=== PATIENT | female | born 1990 | race Caucasian/White ===

== ENCOUNTER 2017-04-07 15:57 | Inpatient (IN) | payer OTHER ==
[~2017-04-07] VITALS: Ht 156 cm; Wt 67.0 kg
[2017-04-07] MEDS ORDERED: RINGERS SOLUTION,LACTATED 1,000 ML IV PRN (16:40)
[2017-04-07] MEDS ORDERED: OXYTOCIN 30 UNITS/LACT RINGERS 500 ML IV ONE (16:40)
[2017-04-07] MEDS ORDERED: CITRIC ACID/SODIUM CITRATE 30 ML SOLUTION UDCUP PO PRN (16:45)
[2017-04-07] MEDS ORDERED: METOCLOPRAMIDE HCL 5 MG/ML 2 ML VIAL IVP PRN (16:45)
[2017-04-07] MEDS ORDERED: PRENATAL VIT PO (16:49)
[2017-04-07] MEDS ORDERED: [UNRECOGNIZED DRUG - OTHER] PO (16:49)
[2017-04-07] MEDS ORDERED: IRON PO (16:49)
[2017-04-07 17:14] LABS: BASOPHILS % (AUTO) 0.3 % (0.0-2.0); EOSINOPHILS % (AUTO) 0.1 % (1.0-6.0); HEMATOCRIT 36.6 % (36-46); HEMOGLOBIN 12.5 g/dL (12.0-16.0); LYMPHOCYTES # (AUTO) 1.6 K/uL (1.0-4.8); MEAN CORPUSCULAR HEMOGLOBIN 30.3 pg (26.0-34.0); MEAN CORPUSCULAR HGB CONC 34.2 G/dL (31.0-37.0); MEAN CORPUSCULAR VOLUME 89 fL (80-100); MONOCYTES # (AUTO) 0.8 K/uL (0.1-1.0); MONOCYTES % (AUTO) 5.7 % (2.0-9.0); NEUTROPHILS # (AUTO) 11.7 K/uL (1.8-7.7); NEUTROPHILS % (AUTO) 82.9 % (40.0-70.0); RED BLOOD CELL COUNT(AUTO) 4.14 MIL/uL (4.00-5.20); RED CELL DISTRIBUTION WIDTH 13.8 % (11.5-14.5); WHITE BLOOD COUNT (AUTO) 14.2 K/uL (4.5-11.0)
[2017-04-07] MEDS: RINGERS SOLUTION,LACTATED 1,000 ML IV SCH ×2 (17:27→21:04)
[2017-04-07] MEDS ORDERED: AMPICILLIN SODIUM 2 GM/NS 100 ML IV ONE (17:45)
[2017-04-07 18:06] VITALS: BP 127/83
[2017-04-07] MEDS ORDERED: MISOPROSTOL 25 MCG TABLET VG ONE ×2 (18:30→22:00)
[2017-04-07] MEDS ORDERED: OXYGEN THERAPY IH SCH (20:00)
[2017-04-07] MEDS: AMPICILLIN SODIUM 1 GM/NS 50 ML IV SCH (22:05)
[2017-04-08] MEDS: AMPICILLIN SODIUM 1 GM/NS 50 ML IV SCH ×4 (02:37→14:38)
[2017-04-08] MEDS ORDERED: MISOPROSTOL 25 MCG TABLET VG ONE (05:00)
[2017-04-08] MEDS: RINGERS SOLUTION,LACTATED 1,000 ML IV SCH ×2 (06:30→14:38)
[2017-04-08] MEDS: FentaNYL CITRATE-PF 100 MCG/2 ML VIAL IVP PRN ×2 (06:47→06:53)
[2017-04-08] MEDS ORDERED: OXYTOCIN 30 UNITS/LACT RINGERS 500 ML IV PRN (08:56)
[2017-04-08] MEDS ORDERED: FentaNYL/BUPIV 0.125%/NS/PF 200 ML ED PRN (09:59)
[2017-04-08] MEDS ORDERED: DiphenhydrAMINE HCL 50 MG/ML VIAL IVP PRN (10:00)
[2017-04-08] MEDS ORDERED: NALBUPHINE HCL 10 MG/ML VIAL IVP PRN (10:00)
[2017-04-08] MEDS ORDERED: PROMETHAZINE HCL 25 MG/ML VIAL IM PRN (10:00)
[2017-04-08] MEDS ORDERED: ONDANSETRON HCL 4 MG/2 ML VIAL IVP PRN (10:00)
[2017-04-08] MEDS ORDERED: LIDOCAINE HCL 2%/EPI 1:200,000/PF 10 ML VIAL ONE (10:04)
[2017-04-08] MEDS ORDERED: RINGERS SOLUTION,LACTATED 1,000 ML IV ONE (16:14)
[2017-04-08] MEDS ORDERED: IBUPROFEN 600 MG TABLET PO PRN (16:15)
[2017-04-08] MEDS ORDERED: BENZOCAINE 20%/MENTHOL 56 GM SPRAY CANISTER TP PRN (16:15)
[2017-04-08] MEDS ORDERED: LANOLIN 7 GM OINTMENT TP PRN (16:15)
[2017-04-08] MEDS ORDERED: GLYCERIN/WITCH HAZEL LEAF 40 PADS JAR TP PRN (16:15)
[2017-04-08] MEDS ORDERED: MEASLES/MUMPS/RUBELLA VACCINE, LIVE 0.5 ML/VIAL SQ ONE (16:15)
[2017-04-08] MEDS ORDERED: OxyCODONE HCL/ACETAMINOPHEN 5-325 MG TABLET PO PRN ×2 (16:15)
[2017-04-08] MEDS: MAGNESIUM HYDROXIDE SUSPENSION 30 ML UDCUP PO SCH (20:04)
[2017-04-09] MEDS: MAGNESIUM HYDROXIDE SUSPENSION 30 ML UDCUP PO SCH (08:17)
[2017-04-09] MEDS ORDERED: DSS100 PO (14:35)
[2017-04-09] MEDS ORDERED: IBUP-2070 PO (14:35)
== END 2017-04-09 15:45 | disposition home or self-care (01) | DRG 775 ==
LOC: 4S 15:57 → OBSVTOIN 15:57
PROVIDERS: ADMIT Obstetrics & Gynecology; ATTEND Obstetrics & Gynecology
PROC: 10E0XZZ Delivery of Products of Conception, External Approach (ICD-10-PCS; principal; 2017-04-08)
PROC: 0KQM0ZZ Repair Perineum Muscle, Open Approach (ICD-10-PCS; 2017-04-08)
PROC: 3E0S3CZ (ICD-10-PCS; 2017-04-08)
PROC: 00HU33Z Insertion of Infusion Device into Spinal Canal, Percutaneous Approach (ICD-10-PCS; 2017-04-08)
DX: O42.92 Full-term premature rupture of membranes, unspecified as to length of time between rupture and onset of labor (principal); O70.1 Second degree perineal laceration during delivery; Z37.0 Single live birth; Z3A.37 37 weeks gestation of pregnancy
CPT/HCPCS: J0290; J2590; J3010; J3490; J7120